=== PATIENT | male | born 1955 | race Caucasian/White ===

== ENCOUNTER 2023-11-15 13:00 | Outpatient (RCR) | payer MEDICARE, MEDICAID, SELFPAY ==
[2023-10-24 13:09] VITALS: BP 157/84; PULSE 71; RESP 16; TEMP 37.3; BMI 21.5
--- NOTE | 2023-10-24 16:17 | PCM.WC.HP ---
History of Present Illness Date of Service: 10/24/23 Chief Complaint: Lesion on his right upper back History of Wound: Patient is a pleasant 67 year old male who presents with several lesions on his back. He was referred to us from his PCP, Merari Oliver NP. He is a very poor historian. He states that he had several biopsies on his back which showed basal cell carcinoma. He states they were done by Dr. Eubanks, his infectious disease doctor. He doesn't remember why he sees ID. He has a follow up with someone on November 09 but he doesn't remember which provider. He is unsure if he is scheduled to have the BCC lesion removed from his back. He states he was sent here to have help with dressing changes. He lives with a friend who will not help him change his dressings on his his back. He also has a large right groin hernia that he is supposed to see general surgeon Dr. Alcantara for and he believes she is going to remove his lesions on his back. For wound care, he has a band aid over the lesions. He does not change them because he cannot reach them. The band aids stay on for weeks at a time, this is why his PCP referred him to us. He has 3 lesions on his back. On his right upper back there is a 2 x 2.5 cm lesion, that is raised, crusty and will bleed intermittently. On his right lower back and his left lower back, those areas are healed from the shave biopsy. Patient states he smokes 1 pack per day of cigarettes since he was in his teens. He is a regular marijuana smoker (which he states is why he can not remember anything). He denies any other health issues. Today he denies fever, chills, nausea or vomiting. He comes in for further evaluation. Progress of Wound: Large 2 x 2.5 raised lesion that has dried blood present located on right upper back. It is tender to palpation. It clinically looks like a basal cell carcinoma. The lower right back and lower left back shave biopsies are dry and healed with granulation tissue. [facility] Medical History (Updated 10/26/23 @ 10:51 by Digna Miner NP, [employer]TAIN-C) Lyme disease Right groin hernia Home Medications multivitamin (Daily Multi-Vitamin tablet) 1 tab PO DAILY 10/24/23 [History Last Taken Unknown] rosuvastatin 10 mg tablet 10 mg PO DAILY 10/24/23 [History Last Taken Unknown] vitamin B complex (Vitamins B Complex capsule) 1 cap PO DAILY 10/24/23 [History Last Taken Unknown] Allergy/AdvReac Type Severity Reaction Status Date / Time ragweed pollen Allergy Intermediate Other Verified 10/24/23 13:27 Family History (Updated 10/26/23 @ 10:27 by Digna Miner NP, [employer] CAPTAIN-C) Mother CVA (cerebral vascular accident) Father Cancer Dementia Social History (Updated 10/26/23 @ 10:30 by Digna Miner NP, [employer]TAIN-C) Smoking Status: Current every day smoker tobacco type: cigarettes Smoking packs per day: 1 Smoking cigarettes per day: 20.0 Years smoked: 50 Smoking pack-years: 50.00 substance use type: marijuana ROS Constitutional Constitutional: Denies fever(s), frequent falls or headache(s) Eyes Eyes: Reports none ENT HEENT: Reports none Cardiovascular Cardiovascular: Denies chest pain or dyspnea Respiratory/Chest Respiratory/Chest: Denies cough or dyspnea Gastrointestinal Gastrointestinal: Reports none; Denies nausea or vomiting Genitourinary Genitourinary: Reports none Musculoskeletal Musculoskeletal: Reports none Integumentary Integumentary: Reports lesions Neurologic Neurologic: Reports memory loss Psychiatric Psychiatric: Reports memory loss Endocrine Endocrinology: Reports none Vital Signs Vital Signs Vital Signs: 10/24/23 13:09 Temperature 99.2 F H Temperature Source Temporal Pulse Rate 71 Respiratory Rate 16 Blood Pressure 157/84 H Blood Pressure Mean 108 Blood Pressure Source Monitor Blood Pressure Position Sitting Blood Pressure Location Left Arm Oxygen Delivery Method Room Air Weight Weight: 150 lb Body Mass Index (BMI) 21.5 Physical Exam Const alert General Appearance: cooperative and comfortable HEENT normocephalic Head and Scalp: atraumatic Eyes General Eye: normal appearance of both eyes Neck full ROM Lymph Lymphatic: no lymphedema noted Resp normal respiratory effort and clear to auscultation bilaterally Effort and Inspection: able to speak in complete sentences Cardio regular rate and regular rhythm GI soft to palpation and non-tender Narrative: Large right groin hernia visible through his clothes Back/Spine normal ROM Extremity full ROM and normal capillary refill Skin Skin Narrative: Large 2 x 2.5 raised lesion that has dried blood present located on right upper back. It is tender to palpation. It clinically looks like a basal cell carcinoma. The lower right back and lower left back shave biopsies are dry and healed with granulation tissue. Neuro oriented x3 and moves all extremities Neuro Narrative: Alert and oriented but very poor historian. He states he is easily confused. He has a friend who helps him with his appointments. He is unsure who biopsied the lesions on his back and he is unsure who is going to remove them. He states his memory issues is from smoking marijuana regularly since he was 19. He states that he has no problems driving, he denies getting lost. He states he has issues with keeping his appointments straight. Psych cooperative, affect normal and speech normal Psych Narrative: Extremely forgetful. He states that his forgetfulness is from smoking marijuana regularly since he was 19 years old. Appearance: appropriate Debridement Note Debridement Note No debridement was completed: No debridement was completed today Post-Debridement Measurements and Additional Note: Post-Debridement Measurements/Treatment - Nurse 1 - General Ulcer Assessment Start: 10/24/23 13:07 Freq: Status: Active Protocol: [email or web address] Activity Type Activity Date Activity User E-sign Co-sign Detail Recorded Client Recorded Date Recorded By Document 10/24/23 13:09 [facility] Desktop 10/24/23 13:23 [facility] 10/24/23 13:09 - Today's Visit Information Type of service Initial Visit Arrival Mode Ambulatory Transfer Assistance None Patient Identification Verified (Name & Yes ) Patient Requires Transmission-Based No Precautions Height and Weight Height 5 ft 10 in Weight 150 lb Weight in Pounds 150.0 lbs Weight Measurement Method Estimated by Patient Body Mass Index (BMI) 21.5 BMI Classification Normal BSA - Tesha 1.85 Vital Signs Temperature (97.8 F-99.1 F) 99.2 F H Temperature Source Temporal Pulse Rate (60-100) 71 Pulse Location Monitor Respiratory Rate (12-18) 16 Respiratory rate source Observation Oxygen Delivery Method Room Air Blood Pressure (90/60-120/80) 157/84 H Blood Pressure Mean 108 Source Monitor Position Sitting Blood Pressure Location Left Arm History Since Last Visit- (Skip if this is Patient's initial visit) Left Footwear Regular Shoe Right Footwear Regular Shoe Pain Scale: 0-10 Numeric Is Patient Pain Free? Yes Communication Assessment Preferred language [place] [employer] Work[employer] Required No Able to Read Yes Able to Write Yes Communication Tools None Right Hearing Abillity Normal Left Hearing Abillity Normal Visual Assistive Devices Glasses Teaching Assessment Preferences Verbal,Written, Audio/Visual, Demonstration Barriers to Learning None Readiness To Learn Excellent Willingness to Engage in Self Management High Activies Readiness to Engage in Self Management High Activities Anxiety Level Calm Cooperation Cooperative Perception Coherent Interest in Health Problem Asks Questions Education Importance Acknowledges Need Does Patient Smoke tobacco or other No substances Smoking Status Current every day smoker Is Patient Diabetic No Culture/Scientologist/[employer] Cultural/Scientologist Needs that may affect No Treatment Plan Teaching: Wound Center Skin Care -Person Taught Patient -Teaching Method Discussion -Response to teaching Verbalize understanding *Wound/Skin Impairment -Person Taught Patient -Teaching Method Discussion -Response to teaching Verbalize understanding Dressing Your Wound -Person Taught Patient -Teaching Method Discussion -Response to teaching Verbalize understanding *Welcome to the Wound Center -Person Taught Patient -Teaching Method Discussion -Response to teaching Verbalize understanding WC - Nurse 1 - General Ulcer Measurement Start: 10/24/23 13:07 Freq: Status: Active Protocol: Activity Type Activity Date Activity User E-sign Co-sign Detail Recorded Client Recorded Date Recorded By Document 10/24/23 13:09 [facility] Desktop 10/24/23 13:23 [facility] 10/24/23 13:09 Wound Center Nurse 1 #1- R SCAPULA BASAL CELL CA -Combined with other wound No -Current Size (cm) - Length 1.9 -Current Size (cm) - Width 2.2 -Current Size (cm) - Depth 0.1 -Total Square Cm 4.18 -Date of Last Picture (Recall this 10/24/23 field) -Photo Taken Yes -Epithelialization None Present -Tunneling No -Undermining/Tunneling No -Circular Undermining No -Exudate Amt Medium -Exudate Type Sanguineous -Wound Margin Distinct, Outline Attached -Granulation Amt Small (1-33%) -Granulation Quality Red -Slough/Fibrin No -Necrosis Amt None Present (0 %) -Texture (Elisabeth-wound Skin Appearance) Assessed, Scarring -Moisture (Elisabeth-wound Skin Appearance) Assessed,Dry/ Scaly -Color (Elisabteh-wound Skin Appearance) Assessed -Temperature (Elisabeth-wound Skin No Abnormality Appearance) (Pt Warm) -Tenderness on Palpation (Elisabeth-wound No Skin Appearance) -Ulcer Cleansing Soap and Water -Foul Odor after Cleansing No -Anesthetic Used 5% Lidocaine Gel -Wound Comment(s) SEE PIC- PER PT IS BASAL CELL CA WC - Nurse 2 - General Ulcer CM Notes Start: 10/24/23 13:07 Freq: Status: Active Protocol: Activity Type Activity Date Activity User E-sign Co-sign Detail Recorded Client Recorded Date Recorded By Document 10/24/23 13:41 Desktop 10/24/23 13:49 10/24/23 13:41 Wound Center Nurse 2 -Time 13:42 -Correct Patient Yes -Correct Side, Site, Position Yes -Post Debridement (cm) - Length 2.0 -Post Debridement (cm) - Width 2.4 -Total Square (Post) (cm) 4.80 Pain Scale: 0-10 Numeric Is Patient Pain Free? Yes WC - Nurse 3 - General Ulcer D/C NN Start: 10/24/23 13:07 Freq: Status: Active Protocol: Activity Type Activity Date Activity User E-sign Co-sign Detail Recorded Client Recorded Date Recorded By Document 10/24/23 14:03 [facility] Desktop 10/24/23 14:04 [facility] 10/24/23 14:03 Wound Care Center Nurse 3 #1- R SCAPULA BASAL CELL CA -Primary Dressing Applied Mepilex Border -Mepilex Border 2 -Wound Comment(s) ALSO APPLIED ONE TO R LOWER BACK- PAD AND PROTECT PREVIOUSLY OPEN AREA Treatment Response Procedure Tolerated Well Pain Scale: 0-10 Numeric Is Patient Pain Free? Yes WC - Visit Discharge Discharge Condition Stable Ambulatory Status Ambulatory Transportation Private Auto Charges/Coding Visit Charges Office Visits / Consults: [id number] OV L4 New 45min Assessment/Plan Assessment/Plan (1) Skin lesion of back: CODE(S): L98.9 - Disorder of the skin and subcutaneous tissue, unspecified (2) Basal cell carcinoma (BCC) of upper back: CODE(S): C44.519 - Basal cell carcinoma of skin of other part of trunk (3) Smokes 1 pack of cigarettes per day: CODE(S): F17.210 - Nicotine dependence, cigarettes, uncomplicated (4) Poor historian: CODE(S): Z78.9 - Other specified health status (5) Marijuana use: CODE(S): F12.90 - Cannabis use, unspecified, uncomplicated PLAN: Plan Patient evaluated at the wound healing center today. He states he does not have anyone who will help with his dressing changes. The right lower back and left lower back shave biopsy lesions are healed. They do not need to be dressed. The right upper back lesion often bleeds. Will place Mepilex/Nyssa SAP M-W-F. He can come into the wound center to have these changed. Instructed him not to get this area wet, but on the day he comes into the wound center, he may shower right before coming here to have the dressing changed. He is an extremely poor historian. He stated that Dr. Eubanks, infectious disease in [place], biopsied his lesions. I phoned her office and spoke to her staff and they did not biopsy his lesions, they see him for his history of Lyme disease. I phoned his PCP's office, Merari Oliver NP, and they were able to tell me that he went to Dermatology to have his lesions biopsied by Tricia Ferrari NP. I called dermatology and was told that he is scheduled with Dr. Mauro Campos, [facility]'s surgeon on November 16 @ 10 am for excision of these lesions in [place]. He also has follow up appointments with Dr. Campos on November 23 at 10 am, November 30 at 10 am and Feb 13 at 215 pm. He has an appointment with his PCP on November 09 at 145 pm. General Surgery appointment with Dr. Alcantara on November 20 at 115 pm. Follow up for nurse's visit on Tuesday and Tuesday and follow up with me in one week. Greater than 60 minutes spent with patient, reviewing records, and phoning other providers for information and documenting.
--- NOTE | 2023-10-25 14:56 | WC ---
10/24/2023 [facility]
[2023-10-26 13:01] VITALS: BP 159/89; PULSE 82; RESP 16; TEMP 36.8; BMI 21.5
[2023-10-28 11:12] VITALS: BP 150/90; PULSE 104; RESP 20; TEMP 36.2; BMI 21.5
[2023-10-31 13:14] VITALS: BP 146/103; PULSE 75; RESP 16; TEMP 37.2; BMI 21.5
[2023-11-02 13:27] VITALS: BP 168/90; PULSE 75; RESP 16; TEMP 37.6; BMI 21.5
[2023-11-02 13:34] VITALS: TEMP 36.4; BMI 21.5
--- NOTE | 2023-11-02 16:16 | PCM.WC.PN ---
History of Present Illness Date of Service: 11/02/23 Chief Complaint: Lesion on his right upper back History of Wound: Patient is a pleasant 67 year old male who presents with several lesions on his back. He was referred to us from his PCP, Merari Oliver NP. He is a very poor historian. He states that he had several biopsies on his back which showed basal cell carcinoma. He states they were done by Dr. Eubanks, his infectious disease doctor. He doesn't remember why he sees ID. He has a follow up with someone on November 09 but he doesn't remember which provider. He is unsure if he is scheduled to have the BCC lesion removed from his back. He states he was sent here to have help with dressing changes. He lives with a friend who will not help him change his dressings on his his back. He also has a large right groin hernia that he is supposed to see general surgeon Dr. Alcantara for and he believes she is going to remove his lesions on his back. For wound care, he has a band aid over the lesions. He does not change them because he cannot reach them. The band aids stay on for weeks at a time, this is why his PCP referred him to us. He has 3 lesions on his back. On his right upper back there is a 2 x 2.5 cm lesion, that is raised, crusty and will bleed intermittently. On his right lower back and his left lower back, those areas are healed from the shave biopsy. Patient states he smokes 1 pack per day of cigarettes since he was in his teens. He is a regular marijuana smoker (which he states is why he can not remember anything). He denies any other health issues. Today he denies fever, chills, nausea or vomiting. He comes in for further evaluation. Progress of Wound: Large raised lesion that has small amount of bleeding after the gauze was remove, located on right upper back. It is tender to palpation. He has been coming in for dressing changes 3 times a week. It is stable in appearance. The lower right back and lower left back shave biopsies are dry and healed with granulation tissue. He is scheduled a the end of October to have the right upper back lesion removed in [place] by dermatology. He has a dark pigmented lesion that is flat and irregular shaped on his posterior right shoulder that was noticed today, it measures 0.5 x 0.5 cm. It is non painful when palpated. Objective Data Objective Data Vital Signs: Vital Signs Temp Pulse Resp BP O2 Del Method 97.5 F L 75 16 168/90 H Room Air 11/02/23 13:34 11/02/23 13:27 11/02/23 13:27 11/02/23 13:27 11/02/23 13:27 Oxygen Delivery Method Room Air Weight: 150 lb Body Mass Index (BMI) 21.5 Charges/Coding Visit Charges Office Visits / Consults: 29025 OV L3 Est 20min Physical Exam Const alert General Appearance: cooperative and comfortable HEENT normocephalic Head and Scalp: atraumatic Eyes General Eye: normal appearance of both eyes Neck full ROM Lymph Lymphatic: no lymphedema noted Resp normal respiratory effort and clear to auscultation bilaterally Effort and Inspection: able to speak in complete sentences Cardio regular rate and regular rhythm GI soft to palpation and non-tender Narrative: Large right groin hernia visible through his clothes Back/Spine normal ROM Extremity full ROM and normal capillary refill Skin Skin Narrative: Large 2 x 2.5 raised lesion that has dried blood present located on right upper back. It is tender to palpation. It clinically looks like a basal cell carcinoma. The lower right back and lower left back shave biopsies are dry and healing well. He has a dark pigmented lesion that is flat and irregular shaped on his posterior right shoulder that was noticed today, it measures 0.5 x 0.5 cm. It is non painful when palpated. Neuro oriented x3 and moves all extremities Psych cooperative, affect normal and speech normal Psych Narrative: Extremely forgetful. He states that his forgetfulness is from smoking marijuana regularly since he was 19 years old. Appearance: appropriate Debridement Note Debridement Note Post-Debridement Measurements and Additional Note: Post-Debridement Measurements/Treatment CATHRYN - Nurse 1 - General Ulcer Assessment Start: 10/24/23 13:07 Freq: Status: Active Protocol: ZIA Activity Type Activity Date Activity User E-sign Co-sign Detail Recorded Client Recorded Date Recorded By Document 10/24/23 13:09 [facility] Desktop 10/24/23 13:23 [facility] Document 10/26/23 13:01 BM Desktop 10/26/23 13:07 BM Document 10/28/23 11:12 DL [id number] 10/28/23 11:15 DL Document 10/31/23 13:14 [facility] Desktop 10/31/23 13:16 [facility] Document 11/02/23 13:27 [facility] wound center 11/02/23 13:33 [facility] Document 11/02/23 13:34 [facility] wound center 11/02/23 13:34 BM[facility] 10/24/23 10/26/23 10/28/23 13:09 13:01 11:12 WC - Today's Visit Information Type of service Initial Visit Nurse-only Nurse-only Visit Visit Arrival Mode Ambulatory Ambulatory Ambulatory Transfer Assistance None None None Patient Identification Verified (Name & Yes Yes Yes ) Patient Requires Transmission-Based No No No Precautions Height and Weight Height 5 ft 10 in Weight 150 lb Weight in Pounds 150.0 lbs Weight Measurement Method Estimated by Patient Body Mass Index (BMI) 21.5 21.5 21.5 BMI Classification Normal Normal Normal BSA - Tesha 1.85 Vital Signs Temperature (97.8 F-99.1 F) 99.2 F H 98.3 F 97.2 F L Temperature Source Temporal Temporal Temporal Pulse Rate (60-100) 71 82 104 H Pulse Location Monitor Monitor Monitor Respiratory Rate (12-18) 16 16 20 H Respiratory rate source Observation Observation Observation Oxygen Delivery Method Room Air Room Air Blood Pressure (90/60-120/80) 157/84 H 159/89 H 150/90 H Blood Pressure Mean (mm Hg) 108 112 110 Source Monitor Monitor Monitor Position Sitting Sitting Blood Pressure Location Left Arm Left Arm Comment History Since Last Visit- (Skip if this is Patient's initial visit) Have you changed medications since your No No last visit? Any new allergies or adverse reactions No No Had a fall/change in ADL's that may No No increase risk of falls Signs or symptoms of abuse and/or No No neglect since last visit Have you been in the hospital since your No No last visit? Has dressing in place as prescribed Yes Yes Has compression in place as prescribed N/A N/A Has offloadiing in place as prescribed N/A N/A Experienced any changes in pain level or No No management Left Footwear Regular Shoe Regular Shoe Right Footwear Regular Shoe Regular Shoe Pain Scale: 0-10 Numeric Is Patient Pain Free? Yes Yes Yes Communication Assessment Preferred language Vietnamese Research Spec Required No Able to Read Yes Able to Write Yes Communication Tools None Right Hearing Abillity Normal Left Hearing Abillity Normal Visual Assistive Devices Glasses Teaching Assessment Preferences Verbal,Written, Audio/Visual, Demonstration Barriers to Learning None Readiness To Learn Excellent Willingness to Engage in Self Management High Activies Readiness to Engage in Self Management High Activities Anxiety Level Calm Cooperation Cooperative Perception Coherent Interest in Health Problem Asks Questions Education Importance Acknowledges Need Does Patient Smoke tobacco or other No substances Smoking Status Current every day smoker Is Patient Diabetic No Culture/Oriental Orthodox/Public Information Director Cultural/Oriental Orthodox Needs that may affect No Treatment Plan Teaching: Wound Center Skin Care -Person Taught Patient -Teaching Method Discussion -Response to teaching Verbalize understanding *Wound/Skin Impairment -Person Taught Patient -Teaching Method Discussion -Response to teaching Verbalize understanding Dressing Your Wound -Person Taught Patient -Teaching Method Discussion -Response to teaching Verbalize understanding *Welcome to the Wound Center -Person Taught Patient -Teaching Method Discussion -Response to teaching Verbalize understanding 10/31/23 11/02/23 11/02/23 13:14 13:27 13:34 WC - Today's Visit Information Type of service Nurse-only Follow-up Visit Visit (Physician/HYDROELECTRIC COMPONENT MACHINIST ) Arrival Mode Ambulatory Ambulatory Transfer Assistance None Patient Identification Verified (Name & Yes Yes ) Patient Requires Transmission-Based No No Precautions Height and Weight Height Weight Weight in Pounds Weight Measurement Method Body Mass Index (BMI) 21.5 21.5 21.5 BMI Classification Normal Normal Normal BSA - Tesha Vital Signs Temperature (97.8 F-99.1 F) 99 F 99.6 F H 97.5 F L Temperature Source Temporal Temporal Oral Pulse Rate (60-100) 75 75 Pulse Location Monitor Monitor Respiratory Rate (12-18) 16 16 Respiratory rate source Observation Observation Oxygen Delivery Method Room Air Room Air Blood Pressure (90/60-120/80) 146/103 H 168/90 H Blood Pressure Mean (mm Hg) 117 116 Source Monitor Position Sitting Blood Pressure Location Right Arm Comment always wearing WEARS HAT a hat for temp History Since Last Visit- (Skip if this is Patient's initial visit) Have you changed medications since your No No last visit? Any new allergies or adverse reactions No No Had a fall/change in ADL's that may No No increase risk of falls Signs or symptoms of abuse and/or No No neglect since last visit Have you been in the hospital since your No No last visit? Has dressing in place as prescribed Yes Yes Has compression in place as prescribed N/A N/A Has offloadiing in place as prescribed N/A N/A Experienced any changes in pain level or No No management Left Footwear Regular Shoe Regular Shoe Right Footwear Regular Shoe Regular Shoe Pain Scale: 0-10 Numeric Is Patient Pain Free? Yes Yes Yes Communication Assessment Preferred american sign language interpreter Required Able to Read Able to Write Communication Tools Right Hearing Abillity Left Hearing Abillity Visual Assistive Devices Teaching Assessment Preferences Barriers to Learning Readiness To Learn Willingness to Engage in Self Management Activies Readiness to Engage in Self Management Activities Anxiety Level Cooperation Perception Interest in Health Problem Education Importance Does Patient Smoke tobacco or other substances Smoking Status Is Patient Diabetic Culture/Oriental Orthodox/Public Information Director Cultural/Oriental Orthodox Needs that may affect Treatment Plan Teaching: Wound Center Skin Care -Person Taught -Teaching Method -Response to teaching *Wound/Skin Impairment -Person Taught -Teaching Method -Response to teaching Dressing Your Wound -Person Taught -Teaching Method -Response to teaching *Welcome to the Wound Center -Person Taught -Teaching Method -Response to teaching WC - Nurse 1 - General Ulcer Measurement Start: 10/24/23 13:07 Freq: Status: Active Protocol: Activity Type Activity Date Activity User E-sign Co-sign Detail Recorded Client Recorded Date Recorded By Document 10/24/23 13:09 [facility] Desktop 10/24/23 13:23 [facility] Document 10/28/23 11:12 DL [id number] 10/28/23 11:15 Document 11/02/23 13:27 [facility] wound center 11/02/23 13:33 [facility] 10/24/23 10/28/23 11/02/23 13:09 11:12 13:27 Wound Center Nurse 1 #1- R SCAPULA BASAL CELL CA -Combined with other wound No No -Current Size (cm) - Length 1.9 0.1 -Current Size (cm) - Width 2.2 0.1 -Current Size (cm) - Depth 0.1 0.1 -Total Square Cm 4.18 0.01 -Date of Last Picture (Recall this 10/24/23 field) -Photo Taken Yes -Epithelialization None Present -Tunneling No -Undermining/Tunneling No -Circular Undermining No -Exudate Amt Medium Small Small -Exudate Type Sanguineous Sanguineous Sanguineous -Wound Margin Distinct, Distinct, Outline Outline Attached Attached -Granulation Amt Small (1-33%) Large (67-100%) -Granulation Quality Red [place] -Slough/Fibrin No -Necrosis Amt None Present (0 None Present (0 %) %) -Structure Exposed N/A -Texture (Elisabeth-wound Skin Appearance) Assessed, Scarring Assessed Scarring -Moisture (Elisabeth-wound Skin Appearance) Assessed,Dry/ No Abnormality Assessed Scaly -Color (Elisabeth-wound Skin Appearance) Assessed No Abnormality Assessed -Temperature (Elisabeth-wound Skin No Abnormality No Abnormality Appearance) (Pt Warm) (Pt Warm) -Tenderness on Palpation (Elisabeth-wound No No Skin Appearance) -Ulcer Cleansing Soap and Water Rinsed/ Soap and Water Irrigated with Saline -Foul Odor after Cleansing No No No -Anesthetic Used 5% Lidocaine Gel -Wound Comment(s) SEE PIC- PER PT IS BASAL CELL CA WC - Nurse 2 - General Ulcer CM Notes Start: 10/24/23 13:07 Freq: Status: Active Protocol: Activity Type Activity Date Activity User E-sign Co-sign Detail Recorded Client Recorded Date Recorded By Document 10/24/23 13:41 Desktop 10/24/23 13:49 Document 11/02/23 14:11 [id number] 11/02/23 14:13 10/24/23 11/02/23 13:41 14:11 Wound Center Nurse 2 #1- R SCAPULA BASAL CELL CA -Time 13:42 14:12 -Correct Patient Yes Yes -Correct Side, Site, Position Yes Yes -Post Debridement (cm) - Length 2.0 2.1 -Post Debridement (cm) - Width 2.4 2.2 -Post Debridement (cm) - Depth 0.1 -Total Square (Post) (cm) 4.80 4.62 Pain Scale: 0-10 Numeric Is Patient Pain Free? Yes Yes WC - Nurse 3 - General Ulcer D/C NN Start: 10/24/23 13:07 Freq: Status: Active Protocol: Activity Type Activity Date Activity User E-sign Co-sign Detail Recorded Client Recorded Date Recorded By Document 10/24/23 14:03 [facility] Desktop 10/24/23 14:04 [facility] Document 10/26/23 13:01 [facility] Desktop 10/26/23 13:07 [facility] Document 10/28/23 11:12 DL [id number] 10/28/23 11:15 DL Document 10/31/23 13:14 [facility] Desktop 10/31/23 13:16 [facility] Document 11/02/23 14:22 [facility] wound center 11/02/23 14:22 [facility] 10/24/23 10/26/23 10/28/23 14:03 13:01 11:12 Wound Care Center Nurse 3 #1- R SCAPULA BASAL CELL CA -Ulcer Cleansing Rinsed/ Irrigated with Saline -Foul Odor after Cleansing No -Primary Dressing Applied Mepilex Border Mepilex Border Mepilex Border -Other Dressing -Primary Dressing Covered/Secured with Dry Gauze -Mepilex Border 2 2 1 -Wound Comment(s) ALSO APPLIED ALSO COVERED R ONE TO R LOWER LOWER BACK PREV BACK- PAD AND OPEN AREA TO PROTECT PAD AND PROTECT PREVIOUSLY OPEN . AREA Treatment Response Procedure Procedure Procedure Tolerated Well Tolerated Well Tolerated Well Vital Signs Temperature (97.8 F-99.1 F) 98.3 F 97.2 F L Temperature Source Temporal Temporal Pulse Rate (60-100) 82 104 H Pulse Location Monitor Monitor Respiratory Rate (12-18) 16 20 H Respiratory rate source Observation Observation Oxygen Delivery Method Room Air Blood Pressure (90/60-120/80) 159/89 H 150/90 H Blood Pressure Mean (mm Hg) 112 110 Source Monitor Monitor Position Sitting Blood Pressure Location Left Arm Comment Pain Scale: 0-10 Numeric Is Patient Pain Free? Yes Yes Yes WC - Visit Discharge Discharge Condition Stable Stable Stable Ambulatory Status Ambulatory Ambulatory Ambulatory Transportation Private Auto Private Auto Private Auto 10/31/23 11/02/23 13:14 14:22 Wound Care Center Nurse 3 #1- R SCAPULA BASAL CELL CA -Ulcer Cleansing Soap and Water Rinsed/ Irrigated with Saline -Foul Odor after Cleansing No No -Primary Dressing Applied Mepilex Border Mepilex Border, NonAdherent Contact Layer -Other Dressing PTS SILVADENE -Primary Dressing Covered/Secured with Dry Gauze Dry Gauze -Mepilex Border 2 1 -Wound Comment(s) also applied mepilex to r lower back healed area to pad/protect Treatment Response Procedure Procedure Tolerated Well Tolerated Well Vital Signs Temperature (97.8 F-99.1 F) 99 F Temperature Source Temporal Pulse Rate (60-100) 75 Pulse Location Monitor Respiratory Rate (12-18) 16 Respiratory rate source Observation Oxygen Delivery Method Room Air Blood Pressure (90/60-120/80) 146/103 H Blood Pressure Mean (mm Hg) 117 Source Monitor Position Sitting Blood Pressure Location Right Arm Comment always wearing a hat for temp Pain Scale: 0-10 Numeric Is Patient Pain Free? Yes Yes WC - Visit Discharge Discharge Condition Stable Stable Ambulatory Status Ambulatory Ambulatory Transportation Private Auto Private Auto Assessment/Plan Assessment/Plan (1) Skin lesion of back: CODE(S): L98.9 - Disorder of the skin and subcutaneous tissue, unspecified (2) Basal cell carcinoma (BCC) of upper back: CODE(S): C44.519 - Basal cell carcinoma of skin of other part of trunk (3) Smokes 1 pack of cigarettes per day: CODE(S): F17.210 - Nicotine dependence, cigarettes, uncomplicated (4) Poor historian: CODE(S): Z78.9 - Other specified health status (5) Marijuana use: CODE(S): F12.90 - Cannabis use, unspecified, uncomplicated PLAN: Plan Patient evaluated at the wound healing center today. He states he does not have anyone who will help with his dressing changes. Wound care - He brought in Silvadene cream that he obtained from someone, he is unsure who prescribed it. He may place that or hydrogel covered with Mepilex/Braman SAP M-W-F to the right upper back lesion, since it bleeds easily. He can come into the wound center to have this changed. Instructed him not to get this area wet, but on the day he comes into the wound center, he may shower right before coming here to have the dressing changed. Instructed him to show his right posterior shoulder lesion that is flat, irregular shaped and dark pigmented to Dermatology when he sees them at the end of the month. He is an extremely poor historian. He stated that Dr. Eubanks, infectious disease in [place], biopsied his lesions. I phoned her office and spoke to her staff and they did not biopsy his lesions, they see him for his history of Lyme disease. I phoned his PCP's office, Merari Oliver NP, and they were able to tell me that he went to Dermatology to have his lesions biopsied by Tricia Ferrari NP. I called dermatology and was told that he is [place]uro Campos[place] [facility] [place] @ 10 am for excision of these lesions [place]. He also has follow up appointments with Dr. Campos on November 23 at 10 am, November 30 at 10 am and Feb 13 at 215 pm. He has an appointment with his PCP on November 09 at 145 pm. General Surgery appointment with Dr. Alcantara on November 20 at 115 pm. Follow up for nurse's visit on Tuesday, Tuesday and Tuesday and follow up with me in two weeks.
[2023-11-04 11:20] VITALS: BP 158/88; PULSE 81; RESP 18; TEMP 37.4; BMI 21.5
[2023-11-07 13:10] VITALS: BP 140/83; PULSE 75; RESP 18; TEMP 36.7; BMI 21.5
[2023-11-09 13:40] VITALS: BP 139/81; PULSE 77; RESP 18; TEMP 36.9; BMI 21.5
--- NOTE | 2023-11-09 16:21 | PCM.WC.PN ---
History of Present Illness Date of Service: 11/09/23 Chief Complaint: Lesion on his right upper back History of Wound: Patient is a pleasant 67 year old male who presents with several lesions on his back. He was referred to us from his PCP, Merari Oliver NP. He is a very poor historian. He states that he had several biopsies on his back which showed basal cell carcinoma. He states they were done by Dr. Eubanks, his infectious disease doctor. He doesn't remember why he sees ID. He has a follow up with someone on November 09 but he doesn't remember which provider. He is unsure if he is scheduled to have the BCC lesion removed from his back. He states he was sent here to have help with dressing changes. He lives with a friend who will not help him change his dressings on his his back. He also has a large right groin hernia that he is supposed to see general surgeon Dr. Alcantara for and he believes she is going to remove his lesions on his back. For wound care, he has a band aid over the lesions. He does not change them because he cannot reach them. The band aids stay on for weeks at a time, this is why his PCP referred him to us. He has 3 lesions on his back. On his right upper back there is a 2 x 2.5 cm lesion, that is raised, crusty and will bleed intermittently. On his right lower back and his left lower back, those areas are healed from the shave biopsy. Patient states he smokes 1 pack per day of cigarettes since he was in his teens. He is a regular marijuana smoker (which he states is why he can not remember anything). He denies any other health issues. Today he denies fever, chills, nausea or vomiting. He comes in for further evaluation. Progress of Wound: Large raised lesion that has small amount of bleeding after the gauze was remove, located on right upper back. It is tender to palpation. He has been coming in for dressing changes 3 times a week. It is stable in appearance. The lower right back and lower left back shave biopsies are dry and healed with granulation tissue. He is scheduled November 16 to have the right upper back lesion removed in [place] by dermatology. Objective Data Objective Data Vital Signs: Vital Signs Temp Pulse Resp BP O2 Del Method 98.5 F 77 18 139/81 H Room Air 11/09/23 13:40 11/09/23 13:40 11/09/23 13:40 11/09/23 13:40 11/07/23 13:10 Oxygen Delivery Method Room Air Weight: 150 lb Body Mass Index (BMI) 21.5 Charges/Coding Visit Charges Office Visits / Consults: 29211 OV L3 Est 20min Physical Exam Const alert General Appearance: cooperative and comfortable HEENT normocephalic Head and Scalp: atraumatic Eyes General Eye: normal appearance of both eyes Neck full ROM Lymph Lymphatic: no lymphedema noted Resp normal respiratory effort and clear to auscultation bilaterally Effort and Inspection: able to speak in complete sentences Cardio regular rate and regular rhythm GI soft to palpation and non-tender Narrative: Large right groin hernia visible through his clothes Back/Spine normal ROM Extremity full ROM and normal capillary refill Skin Skin Narrative: Large 2 x 2.5 raised lesion located on right upper back. It is tender to palpation. It clinically looks like a basal cell carcinoma. It has not been bleeding and looks better since it has been consistently covered. The lower right back and lower left back shave biopsies are healed well. He has a dark pigmented lesion that is flat and irregular shaped on his posterior right shoulder it measures 0.5 x 0.5 cm. It is non painful when palpated. Neuro oriented x3 and moves all extremities Psych cooperative, affect normal and speech normal Psych Narrative: Extremely forgetful. He states that his forgetfulness is from smoking marijuana regularly since he was 19 years old. Appearance: appropriate Debridement Note Debridement Note No debridement was completed: No debridement was completed today Post-Debridement Measurements and Additional Note: Post-Debridement Measurements/Treatment CATHRYN - Nurse 1 - General Ulcer Assessment Start: 10/24/23 13:07 Freq: Status: Active Protocol: [email or web address] Activity Type Activity Date Activity User E-sign Co-sign Detail Recorded Client Recorded Date Recorded By Document 10/24/23 13:09 BM Desktop 10/24/23 13:23 BMF Document 10/26/23 13:01 BMF Desktop 10/26/23 13:07 BM Document 10/28/23 11:12 DL [id number] 10/28/23 11:15 DL Document 10/31/23 13:14 BMF Desktop 10/31/23 13:16 BMF Document 11/02/23 13:27 BMF wound center 11/02/23 13:33 BMF Document 11/02/23 13:34 BMF wound center 11/02/23 13:34 BMF Document 11/04/23 11:20 KW wound center 11/04/23 11:23 KW Document 11/07/23 13:10 KW wound center 11/07/23 13:16 KW Document 11/09/23 13:40 RB wound center 11/09/23 13:42 RB 10/24/23 10/26/23 10/28/23 13:09 13:01 11:12 WC - Today's Visit Information Type of service Initial Visit Nurse-only Nurse-only Visit Visit Arrival Mode Ambulatory Ambulatory Ambulatory Transfer Assistance None None None Patient Identification Verified (Name & Yes Yes Yes ) Patient Requires Transmission-Based No No No Precautions Height and Weight Height 5 ft 10 in Weight 150 lb Weight in Pounds 150.0 lbs Weight Measurement Method Estimated by Patient Body Mass Index (BMI) 21.5 21.5 21.5 BMI Classification Normal Normal Normal BSA - [place] 1.85 Vital Signs Temperature (97.8 F-99.1 F) 99.2 F H 98.3 F 97.2 F L Temperature Source Temporal Temporal Temporal Pulse Rate (60-100) 71 82 104 H Pulse Location Monitor Monitor Monitor Respiratory Rate (12-18) 16 16 20 H Respiratory rate source Observation Observation Observation Oxygen Delivery Method Room Air Room Air Blood Pressure (90/60-120/80) 157/84 H 159/89 H 150/90 H Blood Pressure Mean (mm Hg) 108 112 110 Source Monitor Monitor Monitor Position Sitting Sitting Blood Pressure Location Left Arm Left Arm Comment History Since Last Visit- (Skip if this is Patient's initial visit) Have you changed medications since your No No last visit? Any new allergies or adverse reactions No No Had a fall/change in ADL's that may No No increase risk of falls Signs or symptoms of abuse and/or No No neglect since last visit Have you been in the hospital since your No No last visit? Has dressing in place as prescribed Yes Yes Has compression in place as prescribed N/A N/A Has offloadiing in place as prescribed N/A N/A Experienced any changes in pain level or No No management Left Footwear Regular Shoe Regular Shoe Right Footwear Regular Shoe Regular Shoe Pain Scale: 0-10 Numeric Is Patient Pain Free? Yes Yes Yes Communication Assessment Preferred language Serbian Linen Supervisor Required No Able to Read Yes Able to Write Yes Communication Tools None Right Hearing Abillity Normal Left Hearing Abillity Normal Visual Assistive Devices Glasses Teaching Assessment Preferences Verbal,Written, Audio/Visual, Demonstration Barriers to Learning None Readiness To Learn Excellent Willingness to Engage in Self Management High Activies Readiness to Engage in Self Management High Activities Anxiety Level Calm Cooperation Cooperative Perception Coherent Interest in Health Problem Asks Questions Education Importance Acknowledges Need Does Patient Smoke tobacco or other No substances Smoking Status Current every day smoker Is Patient Diabetic No Culture/Amish/Medical Records Director Cultural/Amish Needs that may affect No Treatment Plan Teaching: Wound Center Skin Care -Person Taught Patient -Teaching Method Discussion -Response to teaching Verbalize understanding *Wound/Skin Impairment -Person Taught Patient -Teaching Method Discussion -Response to teaching Verbalize understanding Dressing Your Wound -Person Taught Patient -Teaching Method Discussion -Response to teaching Verbalize understanding *Welcome to the Wound Center -Person Taught Patient -Teaching Method Discussion -Response to teaching Verbalize understanding 10/31/23 11/02/23 11/02/23 13:14 13:27 13:34 WC - Today's Visit Information Type of service Nurse-only Follow-up Visit Visit (Physician/CFA ) Arrival Mode Ambulatory Ambulatory Transfer Assistance None Patient Identification Verified (Name & Yes Yes ) Patient Requires Transmission-Based No No Precautions Height and Weight Height Weight Weight in Pounds Weight Measurement Method Body Mass Index (BMI) 21.5 21.5 21.5 BMI Classification Normal Normal Normal BSA - [place] Vital Signs Temperature (97.8 F-99.1 F) 99 F 99.6 F H 97.5 F L Temperature Source Temporal Temporal Oral Pulse Rate (60-100) 75 75 Pulse Location Monitor Monitor Respiratory Rate (12-18) 16 16 Respiratory rate source Observation Observation Oxygen Delivery Method Room Air Room Air Blood Pressure (90/60-120/80) 146/103 H 168/90 H Blood Pressure Mean (mm Hg) 117 116 Source Monitor Position Sitting Blood Pressure Location Right Arm Comment always wearing WEARS HAT a hat for temp History Since Last Visit- (Skip if this is Patient's initial visit) Have you changed medications since your No No last visit? Any new allergies or adverse reactions No No Had a fall/change in ADL's that may No No increase risk of falls Signs or symptoms of abuse and/or No No neglect since last visit Have you been in the hospital since your No No last visit? Has dressing in place as prescribed Yes Yes Has compression in place as prescribed N/A N/A Has offloadiing in place as prescribed N/A N/A Experienced any changes in pain level or No No management Left Footwear Regular Shoe Regular Shoe Right Footwear Regular Shoe Regular Shoe Pain Scale: 0-10 Numeric Is Patient Pain Free? Yes Yes Yes Communication Assessment Preferred sustainability manager Required Able to Read Able to Write Communication Tools Right Hearing Abillity Left Hearing Abillity Visual Assistive Devices Teaching Assessment Preferences Barriers to Learning Readiness To Learn Willingness to Engage in Self Management Activies Readiness to Engage in Self Management Activities Anxiety Level Cooperation Perception Interest in Health Problem Education Importance Does Patient Smoke tobacco or other substances Smoking Status Is Patient Diabetic Culture/Amish/Medical Records Director Cultural/Amish Needs that may affect Treatment Plan Teaching: Wound Center Skin Care -Person Taught -Teaching Method -Response to teaching *Wound/Skin Impairment -Person Taught -Teaching Method -Response to teaching Dressing Your Wound -Person Taught -Teaching Method -Response to teaching *Welcome to the Wound Center -Person Taught -Teaching Method -Response to teaching 11/04/23 11/07/23 11/09/23 11:20 13:10 13:40 WC - Today's Visit Information Type of service Nurse-only Nurse-only Follow-up Visit Visit Visit (Physician/CFA ) Arrival Mode Ambulatory Ambulatory Ambulatory Transfer Assistance None Patient Identification Verified (Name & Yes Yes Yes ) Patient Requires Transmission-Based No Precautions Height and Weight Height Weight Weight in Pounds Weight Measurement Method Body Mass Index (BMI) 21.5 21.5 21.5 BMI Classification Normal Normal Normal [facility] - [place] Vital Signs Temperature (97.8 F-99.1 F) 99.3 F H 98.1 F 98.5 F Temperature Source Temporal Temporal Temporal Pulse Rate (60-100) 81 75 77 Pulse Location Monitor Monitor Monitor Respiratory Rate (12-18) 18 18 18 Respiratory rate source Observation Observation Observation Oxygen Delivery Method Room Air Room Air Blood Pressure (90/60-120/80) 158/88 H 140/83 H 139/81 H Blood Pressure Mean (mm Hg) 111 102 100 Source Monitor Monitor Monitor Position Semi-Fowlers Semi-Fowlers Sitting Blood Pressure Location Left Arm Left Arm Right Arm Comment History Since Last Visit- (Skip if this is Patient's initial visit) Have you changed medications since your No No No last visit? Any new allergies or adverse reactions No No No Had a fall/change in ADL's that may No No No increase risk of falls Signs or symptoms of abuse and/or No No No neglect since last visit Have you been in the hospital since your No No No last visit? Has dressing in place as prescribed Yes Yes Yes Has compression in place as prescribed N/A N/A No Has offloadiing in place as prescribed N/A N/A No Experienced any changes in pain level or No No No management Left Footwear Regular Shoe Regular Shoe Right Footwear Regular Shoe Regular Shoe Pain Scale: 0-10 Numeric Is Patient Pain Free? Yes Yes Yes Communication Assessment Preferred sustainability manager Required Able to Read Able to Write Communication Tools Right Hearing Abillity Left Hearing Abillity Visual Assistive Devices Teaching Assessment Preferences Barriers to Learning Readiness To Learn Willingness to Engage in Self Management Activies Readiness to Engage in Self Management Activities Anxiety Level Cooperation Perception Interest in Health Problem Education Importance Does Patient Smoke tobacco or other substances Smoking Status Is Patient Diabetic Culture/Amish/Medical Records Director Cultural/Amish Needs that may affect Treatment Plan Teaching: Wound Center Skin Care -Person Taught -Teaching Method -Response to teaching *Wound/Skin Impairment -Person Taught -Teaching Method -Response to teaching Dressing Your Wound -Person Taught -Teaching Method -Response to teaching *Welcome to the Wound Center -Person Taught -Teaching Method -Response to teaching WC - Nurse 1 - General Ulcer Measurement Start: 10/24/23 13:07 Freq: Status: Active Protocol: Activity Type Activity Date Activity User E-sign Co-sign Detail Recorded Client Recorded Date Recorded By Document 10/24/23 13:09 [facility] Desktop 10/24/23 13:23 [facility] Document 10/28/23 11:12 DL [id number] 10/28/23 11:15 DL Document 11/02/23 13:27 [facility] wound center 11/02/23 13:33 BM Document 11/07/23 13:10 KW wound center 11/07/23 13:16 KW Document 11/09/23 13:40 RB wound center 11/09/23 13:42 RB 10/24/23 10/28/23 11/02/23 13:09 11:12 13:27 Wound Center Nurse 1 #1- R SCAPULA BASAL CELL CA -Combined with other wound No No -Current Size (cm) - Length 1.9 0.1 -Current Size (cm) - Width 2.2 0.1 -Current Size (cm) - Depth 0.1 0.1 -Total Square Cm 4.18 0.01 -Date of Last Picture (Recall this 10/24/23 field) -Photo Taken Yes -Epithelialization None Present -Tunneling No -Undermining/Tunneling No -Circular Undermining No -Exudate Amt Medium Small Small -Exudate Type Sanguineous Sanguineous Sanguineous -Wound Margin Distinct, Distinct, Outline Outline Attached Attached -Granulation Amt Small (1-33%) Large (67-100%) -Granulation Quality Red [place] -Slough/Fibrin No -Necrosis Amt None Present (0 None Present (0 %) %) -Necrotic Tissue Type -Structure Exposed N/A -Texture (Elisabeth-wound Skin Appearance) Assessed, Scarring Assessed Scarring -Moisture (Elisabeth-wound Skin Appearance) Assessed,Dry/ No Abnormality Assessed Scaly -Color (Elisabeth-wound Skin Appearance) Assessed No Abnormality Assessed -Temperature (Elisabeth-wound Skin No Abnormality No Abnormality Appearance) (Pt Warm) (Pt Warm) -Tenderness on Palpation (Elisabeth-wound No No Skin Appearance) -Ulcer Cleansing Soap and Water Rinsed/ Soap and Water Irrigated with Saline -Foul Odor after Cleansing No No No -Anesthetic Used 5% Lidocaine Gel -Wound Comment(s) SEE PIC- PER PT IS BASAL CELL CA 11/07/23 11/09/23 13:10 13:40 Wound Center Nurse 1 #1- R SCAPULA BASAL CELL CA -Combined with other wound No -Current Size (cm) - Length 2 -Current Size (cm) - Width 2.4 -Current Size (cm) - Depth 0.1 -Total Square Cm 4.8 -Date of Last Picture (Recall this field) -Photo Taken -Epithelialization Small 1-33% -Tunneling No -Undermining/Tunneling No -Circular Undermining No -Exudate Amt Medium -Exudate Type Serous -Wound Margin Distinct, Outline Attached -Granulation Amt Medium (34-66%) -Granulation Quality Hyper- granulation, [place],Red -Slough/Fibrin Yes -Necrosis Amt Small (1-33%) -Necrotic Tissue Type Adherent Slough -Structure Exposed N/A -Texture (Elisabeth-wound Skin Appearance) Assessed Assessed -Moisture (Elisabeth-wound Skin Appearance) Assessed Assessed -Color (Elisabeth-wound Skin Appearance) Assessed Assessed -Temperature (Elisabeth-wound Skin No Abnormality Appearance) (Pt Warm) -Tenderness on Palpation (Elisabeth-wound No Skin Appearance) -Ulcer Cleansing Wound Cleanser -Foul Odor after Cleansing No -Anesthetic Used 5% Lidocaine Gel -Wound Comment(s) WC - Nurse 2 - General Ulcer CM Notes Start: 10/24/23 13:07 Freq: Status: Active Protocol: Activity Type Activity Date Activity User E-sign Co-sign Detail Recorded Client Recorded Date Recorded By Document 10/24/23 13:41 Desktop 10/24/23 13:49 Document 11/02/23 14:11 [id number] 11/02/23 14:13 Document 11/09/23 14:03 wound center 11/09/23 14:04 10/24/23 11/02/23 11/09/23 13:41 14:11 14:03 Wound Center Nurse 2 #1- R SCAPULA BASAL CELL CA -Time 13:42 14:12 14:03 -Correct Patient Yes Yes Yes -Correct Side, Site, Position Yes Yes Yes -Post Debridement (cm) - Length 2.0 2.1 -Post Debridement (cm) - Width 2.4 2.2 -Post Debridement (cm) - Depth 0.1 -Total Square (Post) (cm) 4.80 4.62 -Wound Comment(s) No debridement 2.2 2.5 0.1 Pain Scale: 0-10 Numeric Is Patient Pain Free? Yes Yes Yes CATHRYN - Nurse 3 - General Ulcer D/C NN Start: 10/24/23 13:07 Freq: Status: Active Protocol: Activity Type Activity Date Activity User E-sign Co-sign Detail Recorded Client Recorded Date Recorded By Document 10/24/23 14:03 [facility] Desktop 10/24/23 14:04 [facility] Document 10/26/23 13:01 BMF Desktop 10/26/23 13:07 [facility] Document 10/28/23 11:12 DL [id number] 10/28/23 11:15 DL Document 10/31/23 13:14 F Desktop 10/31/23 13:16 [facility] Document 11/02/23 14:22 [facility] wound center 11/02/23 14:22 [facility] Document 11/04/23 11:20 KW wound center 11/04/23 11:23 KW Document 11/07/23 13:10 KW wound center 11/07/23 13:16 KW Document 11/09/23 14:09 wound center 11/09/23 14:10 10/24/23 10/26/23 10/28/23 14:03 13:01 11:12 Wound Care Center Nurse 3 #1- R SCAPULA BASAL CELL CA -Ulcer Cleansing Rinsed/ Irrigated with Saline -Foul Odor after Cleansing No -Negative Pressure Wound Therapy -Primary Dressing Applied Mepilex Border Mepilex Border Mepilex Border -Other Dressing -Primary Dressing Covered/Secured with Dry Gauze -Mepilex Border 2 2 1 -Wound Comment(s) ALSO APPLIED ALSO COVERED R ONE TO R LOWER LOWER BACK PREV BACK- PAD AND OPEN AREA TO PROTECT PAD AND PROTECT PREVIOUSLY OPEN . AREA Treatment Response Procedure Procedure Procedure Tolerated Well Tolerated Well Tolerated Well Vital Signs Temperature (97.8 F-99.1 F) 98.3 F 97.2 F L Temperature Source Temporal Temporal Pulse Rate (60-100) 82 104 H Pulse Location Monitor Monitor Respiratory Rate (12-18) 16 20 H Respiratory rate source Observation Observation Oxygen Delivery Method Room Air Blood Pressure (90/60-120/80) 159/89 H 150/90 H Blood Pressure Mean (mm Hg) 112 110 Source Monitor Monitor Position Sitting Blood Pressure Location Left Arm Comment Pain Scale: 0-10 Numeric Is Patient Pain Free? Yes Yes Yes WC - Visit Discharge Discharge Condition Stable Stable Stable Ambulatory Status Ambulatory Ambulatory Ambulatory Transportation Private Auto Private Auto Private Auto Clinical Summary of Care Provided 10/31/23 11/02/23 11/04/23 13:14 14:22 11:20 Wound Care Center Nurse 3 #1- R SCAPULA BASAL CELL CA -Ulcer Cleansing Soap and Water Rinsed/ Soap and Water Irrigated with Saline -Foul Odor after Cleansing No No -Negative Pressure Wound Therapy -Primary Dressing Applied Mepilex Border Mepilex Border, Mepilex Border, NonAdherent NonAdherent Contact Layer Contact Layer -Other Dressing PTS SILVADENE -Primary Dressing Covered/Secured with Dry Gauze Dry Gauze Dry Gauze -Mepilex Border 2 1 1 -Wound Comment(s) also applied mepilex to r lower back healed area to pad/protect Treatment Response Procedure Procedure Tolerated Well Tolerated Well Vital Signs Temperature (97.8 F-99.1 F) 99 F 99.3 F H Temperature Source Temporal Temporal Pulse Rate (60-100) 75 81 Pulse Location Monitor Monitor Respiratory Rate (12-18) 16 18 Respiratory rate source Observation Observation Oxygen Delivery Method Room Air Room Air Blood Pressure (90/60-120/80) 146/103 H 158/88 H Blood Pressure Mean (mm Hg) 117 111 Source Monitor Monitor Position Sitting Semi-Fowlers Blood Pressure Location Right Arm Left Arm Comment always wearing a hat for temp Pain Scale: 0-10 Numeric Is Patient Pain Free? Yes Yes Yes WC - Visit Discharge Discharge Condition Stable Stable Ambulatory Status Ambulatory Ambulatory Transportation [facility] Clinical Summary of Care Provided 11/07/23 11/09/23 13:10 14:09 Wound Care Center Nurse 3 #1- R SCAPULA BASAL CELL CA -Ulcer Cleansing Rinsed/ Not Cleansed Irrigated with Saline -Foul Odor after Cleansing No -Negative Pressure Wound Therapy N/A -Primary Dressing Applied Mepilex Border Mepilex Border -Other Dressing -Primary Dressing Covered/Secured with -Mepilex Border 1 1 -Wound Comment(s) Treatment Response Vital Signs Temperature (97.8 F-99.1 F) 98.1 F Temperature Source Temporal Pulse Rate (60-100) 75 Pulse Location Monitor Respiratory Rate (12-18) 18 Respiratory rate source Observation Oxygen Delivery Method Room Air Blood Pressure (90/60-120/80) 140/83 H Blood Pressure Mean (mm Hg) 102 Source Monitor Position Semi-Fowlers Blood Pressure Location Left Arm Comment Pain Scale: 0-10 Numeric Is Patient Pain Free? Yes Yes WC - Visit Discharge Discharge Condition Stable Ambulatory Status Ambulatory Transportation Private Auto Clinical Summary of Care Provided Yes Assessment/Plan Assessment/Plan (1) Skin lesion of back: CODE(S): L98.9 - Disorder of the skin and subcutaneous tissue, unspecified (2) Basal cell carcinoma (BCC) of upper back: CODE(S): C44.519 - Basal cell carcinoma of skin of other part of trunk (3) Smokes 1 pack of cigarettes per day: CODE(S): F17.210 - Nicotine dependence, cigarettes, uncomplicated (4) Poor historian: CODE(S): Z78.9 - Other specified health status (5) Marijuana use: CODE(S): F12.90 - Cannabis use, unspecified, uncomplicated PLAN: Plan Patient evaluated at the wound healing center today. He states he does not have anyone who will help with his dressing changes. Wound care - He brought in Silvadene cream that he obtained from someone, he is unsure who prescribed it. He may place that or hydrogel covered with Mepilex/Yoder SAP M-W-F to the right upper back lesion, since it bleeds easily. He can come into the wound center to have this changed. Instructed him not to get this area wet, but on the day he comes into the wound center, he may shower right before coming here to have the dressing changed. Instructed him to show his right posterior shoulder lesion that is flat, irregular shaped and dark pigmented to Dermatology when he sees them next week. He is an extremely poor historian. He stated that Dr. Eubanks, infectious disease in [place], biopsied his lesions. I phoned her office and spoke to her staff and they did not biopsy his lesions, they see him for his history of Lyme disease. I phoned his PCP's office, Merari Oliver NP, and they were able to tell me that he went to Dermatology to have his lesions biopsied by Tricia Ferrari NP. I called dermatology and was told that he is scheduled with Dr. Mauro Campos, Moh's surgeon on November 16 @ 10 am for excision of these lesions in [place]. He also has follow up appointments with Dr. Campos on November 23 at 10 am, November 30 at 10 am and Feb 13 at 215 pm. He has an appointment with his PCP on November 09 at 145 pm. General Surgery appointment with Dr. Alcantara on November 20 at 115 pm. Follow up for nurse's visit on Tuesday. He has his Moh's surgery November 16. He will need to discuss with them about his wound care.
[2023-11-11 13:38] VITALS: BP 142/80; PULSE 77; RESP 18; TEMP 36.1; BMI 21.5
[2023-11-15 13:12] VITALS: BP 151/78; PULSE 72; RESP 18; TEMP 37; BMI 21.5
== END 2023-11-18 23:59 | disposition home or self-care (01) ==
LOC: WC 13:00
PROVIDERS: PCP Nurse Practitioner Family; Referring Provider Nurse Practitioner Family; Visit Provider Nurse Practitioner Family
DX: L98.9 Disorder of the skin and subcutaneous tissue, unspecified (principal); C44.519 Basal cell carcinoma of skin of other part of trunk; F12.90 Cannabis use, unspecified, uncomplicated; F17.210 Nicotine dependence, cigarettes, uncomplicated; Z78.9 Other specified health status
CPT/HCPCS: 99202; 99211; 99212; 99213; G0463